=== PATIENT | female | born 1930 | race Caucasian/White ===

== ENCOUNTER 2019-02-01 20:04 | Inpatient (IN) | payer MEDICARE, BC ==
[~2019-02-01] VITALS: Ht 149.9 cm; Wt 48.5 kg
--- NOTE | 2019-02-01 20:06 | NUR ---
PT BIB EMS C/O SYNCOPE. PER PT SHE WAS ASSITED TO GROUND. PT REPORTS RECENT HYPERTENSION MEDS. PT AOX4. NAD NOTED. RESP EVEN AND UNLABORED. PT ON MONITOR IN BED 1. PT DENIES PAIN AT THIS TIME. WILL CONTINUE TO MONITOR.
--- NOTE | 2019-02-01 20:11 | NUR ---
FAMILY AT BEDSIDE
--- NOTE | 2019-02-01 20:38 | NUR ---
PHLEB AT BEDSIDE FOR BLOOD DRAW
--- NOTE | 2019-02-01 20:43 | NUR ---
TECH AT BEDSIDE FOR EKG
[2019-02-01 20:46] LABS: BASOPHILS % (AUTO) 0.9 % (0.0-2.0); EOSINOPHILS % (AUTO) 1.9 % (0.0-6.0); HEMATOCRIT 38 % (33-45); HEMOGLOBIN 12.6 g/dL (11.5-14.8); LYMPHOCYTES # (AUTO) 1.3 /CMM (0.8-4.8); LYMPHOCYTES % (AUTO) 27.8 % (20.0-44.0); MEAN CORPUSCULAR HGB CONC 33 g/dl (31.0-36.0); MEAN CORPUSCULAR VOLUME 100 fL (82-100); MONOCYTES # (AUTO) 0.5 /CMM (0.1-1.30); MONOCYTES % (AUTO) 11.3 % (2.0-12.0); NEUTROPHILS # (AUTO) 2.8 /CMM (1.8-8.9); NEUTROPHILS % (AUTO) 58.1 % (43.0-81.0); PLATELET COUNT (AUTO) 180 /CMM (150-450); WHITE BLOOD COUNT (AUTO) 4.8 K/uL (4.3-11.0)
--- NOTE | 2019-02-01 20:47 | NUR ---
RADIOLOGY AT BEDSIDE FOR XRAY
--- NOTE | 2019-02-01 20:50 | NUR ---
BED 114-2 GIVEN
--- NOTE | 2019-02-01 20:52 | NUR ---
PT TAKEN TO CT VIA SUMEET
[2019-02-01 21:08] LABS: CALCIUM, SERUM 8.7 mg/dL (8.5-10.1); CARBON DIOXIDE 28 mmol/L (21-32); CHLORIDE 106 mmol/L (98-107); CREATININE 1.1 mg/dL (0.6-1.3); GLUCOSE 126 mg/dL (74-106); POTASSIUM 3.2 mmol/L (3.5-5.1); SODIUM SERUM 142 mmol/L (136-145); UREA NITROGEN, BLOOD 22 mg/dL (7-18)
--- NOTE | 2019-02-01 21:09 | NUR ---
PT RETURNED FROM CT VIA [facility]
[2019-02-01] MEDS ORDERED: POTASSIUM CHLORIDE 20 MEQ TAB.PRT.SR PO STA (21:27)
[2019-02-01] MEDS ORDERED: IV NS 0.9% 250 ML IV ONE (21:31)
[2019-02-01] MEDS ORDERED: CT SWABBABLE VALVE TRANS SET 1 EA INFUS.SET MC ONE (21:31)
[2019-02-01] MEDS ORDERED: POTASSIUM CHLORIDE 20 MEQ TAB.PRT.SR PO ONE (21:32)
[2019-02-01] MEDS ORDERED: IOHEXOL-350 100 ML VIAL IV ONE (21:33)
--- NOTE | 2019-02-01 21:35 | NUR ---
PT TAKEN TO CT VIA SUMEET
--- NOTE | 2019-02-01 21:49 | NUR ---
PT RETURNED FROM CT VIA [facility]
[2019-02-01] MEDS ORDERED: ONDANSETRON HCL/PF 4 MG/2 ML VIAL ONE (21:52)
--- NOTE | 2019-02-01 21:55 | NUR ---
INSPECTOR MATERIAL DISPOSITION WAS PAGED. SPEAKING WITH ER
[2019-02-01] MEDS ORDERED: ONDANSETRON HCL/PF - ER 4 MG/2 ML VIAL IV ONE (22:00)
[2019-02-01] MEDS ORDERED: IV NS 0.9% 500 ML BAG IV ONE (22:30)
[2019-02-01] MEDS ORDERED: IV NS 0.9% 1,000 ML IV PRN (22:50)
[2019-02-01] MEDS ORDERED: MAGNESIUM HYDROXIDE 30 ML UDC PO PRN (23:00)
[2019-02-01] MEDS ORDERED: MAG HYDROX/AL HYDROX/SIMETH 30 ML UDC PO PRN (23:00)
[2019-02-01] MEDS ORDERED: ONDANSETRON HCL/PF 4 MG/2 ML VIAL IVP PRN (23:00)
[2019-02-01] MEDS ORDERED: ACETAMINOPHEN 325 MG TABLET PO PRN (23:00)
[2019-02-01] MEDS ORDERED: Z GUARD REMEDY 2 OZ OINT TP PRN (23:00)
[2019-02-01 23:30] VITALS: BP 147/78
[2019-02-02] MEDS ORDERED: ATOR10TA PO (00:01)
[2019-02-02] MEDS ORDERED: METO-357 PO (00:01)
[2019-02-02] MEDS ORDERED: AMIO200T4 PO (00:01)
[2019-02-02] MEDS ORDERED: ASTHMA INHALER INH (00:01)
[2019-02-02] MEDS ORDERED: LISI-603 PO (00:01)
[2019-02-02] MEDS ORDERED: PANT40TA2 PO (00:01)
[2019-02-02 04:00] VITALS: BP 150/74
--- NOTE | 2019-02-02 06:37 | NUR ---
FLIGHT AGENT NOTES AWAKE & RESPONSIVE. NOT IN ANY DISTRESS. NO SOB NOTED. DENIES ANY PAIN OR DISCOMFORT AT THIS TIME. ON TELE SR @ 62 WITH IV-HL PATENT & INTACT. MONITORED ACCORDINGLY. CALL LIGHT WITHIN REACH. BED IN LOWEST POSITION. SR UP X 2 FOR SAFETY. WILL ENDORSE TO NEXT SHIFT.
[2019-02-02 07:09] LABS: BASOPHILS % (AUTO) 0.8 % (0.0-2.0); EOSINOPHILS % (AUTO) 1.4 % (0.0-6.0); HEMATOCRIT 35 % (33-45); LYMPHOCYTES # (AUTO) 1.7 /CMM (0.8-4.8); LYMPHOCYTES % (AUTO) 28.2 % (20.0-44.0); MEAN CORPUSCULAR HGB CONC 34 g/dl (31.0-36.0); MEAN CORPUSCULAR VOLUME 99 fL (82-100); MONOCYTES # (AUTO) 0.6 /CMM (0.1-1.30); MONOCYTES % (AUTO) 9.8 % (2.0-12.0); NEUTROPHILS # (AUTO) 3.5 /CMM (1.8-8.9); NEUTROPHILS % (AUTO) 59.8 % (43.0-81.0); PLATELET COUNT (AUTO) 167 /CMM (150-450); RED BLOOD CELL COUNT(AUTO) 3.56 MIL/uL (4.0-5.2); WHITE BLOOD COUNT (AUTO) 5.9 K/uL (4.3-11.0)
[2019-02-02] MEDS ORDERED: PANTOPRAZOLE 40 MG TABLET.DR PO SCH (07:30)
[2019-02-02 07:41] LABS: THYROID STIMULATING HORMONE 3.593 uIU/mL (0.358-3.74)
[2019-02-02 08:00] VITALS: BP 156/102
[2019-02-02 08:06] LABS: CALCIUM, SERUM 8.3 mg/dL (8.5-10.1); CREATININE 0.8 mg/dL (0.6-1.3); MAGNESIUM 1.8 mg/dL (1.8-2.4); POTASSIUM 3.2 mmol/L (3.5-5.1)
[2019-02-02 08:18] LABS: PHOSPHORUS 3.9 mg/dL (2.5-4.9)
[2019-02-02 12:00] VITALS: BP 143/85
[2019-02-02] MEDS: POTASSIUM CHLORIDE 20 MEQ TAB.PRT.SR PO SCH ×2 (13:11→14:11)
--- NOTE | 2019-02-02 16:05 | NUR ---
MS RN NOTES PATIENT LEFT AMA , NOTIFIED DR SALGUERO, IV BAND IV ACCESS REMOVED, PATIENT TRANSFERRED TO THE LOBBY BY WHEELCHAIR. PHOTOED TAKEN IN THE CHART.
== END 2019-02-02 16:05 | disposition left against medical advice (07) | DRG 640 ==
LOC: ER 20:12 → TELE1 21:09
PROVIDERS: ADMIT Registered Nurse; ATTEND Family Medicine
DX: E86.0 Dehydration (principal); J96.01 Acute respiratory failure with hypoxia; J45.901 Unspecified asthma with (acute) exacerbation; M48.54XA Collapsed vertebra, not elsewhere classified, thoracic region, initial encounter for fracture; J98.11 Atelectasis; I48.91 Unspecified atrial fibrillation; I25.10 Atherosclerotic heart disease of native coronary artery without angina pectoris; E78.5 Hyperlipidemia, unspecified; I10 Essential (primary) hypertension; I45.10 Unspecified right bundle-branch block; Z95.2 Presence of prosthetic heart valve; Z90.710 Acquired absence of both cervix and uterus; Z85.42 Personal history of malignant neoplasm of other parts of uterus; Z79.82 Long term (current) use of aspirin; Z79.899 Other long term (current) drug therapy; E87.6 Hypokalemia; E86.9 Volume depletion, unspecified; K44.9 Diaphragmatic hernia without obstruction or gangrene
CPT/HCPCS: 36415; 70450-TC; 71045-TC; 80048-TC; 80061-TC; 83735-TC; 84100-TC; 84443-TC; 84484-TC; 85025-TC; 85378-TC; 85730-TC; 87081-TC; 93307-TC; 93880-TC; 93970-TC; 97116-TC; 97530-TC; G0378; J2405; J7040; J7050; Q9967